=== PATIENT | female | born 1975 | race Caucasian/White ===

== ENCOUNTER 2018-01-03 10:33 | Outpatient (CLI) | payer OTHER ==
[2018-01-03 12:20] LABS: #Eosinphils 0.1 thou/uL (0.0-0.7); #Lymphocytes 1.2 thou/uL (1.20-3.40); #Monocytes 0.3 thou/uL (0.11-0.59); #Neutrophils 4.3 thou/uL (1.40-6.50); %Basophils 0.4 % (0.0-1.0); %Eosinophils 1.9 % (0.0-10.0); %Lymphocytes 19.7 % (21.0-51.0); %Monocytes 5.3 % (0.0-10.0); %Neutrophils 72.7 % (42.0-75.0); Hemoglobin 13.8 g/dL (12.0-16.0); Mean Corpuscular Hemoglobin 27.7 pg (27.0-31.0); Mean Corpuscular Volume 86.8 fL (78.0-98.0); Mean Platelet Volume 8.8 fL (7.4-10.4); Platelet Count 159 thou/uL (130-400); RBC Distribution Width 13.8 % (11.5-14.5); Red Blood Cell (RBC) Count 4.96 mill/uL (4.20-5.40); White Blood Cell (WBC) Count 5.8 thou/uL (4.8-10.8)
[2018-01-03 12:39] LABS: BHCG - Serum Negative (NEGATIVE); Pregs Control Background? CLEAR/WHITE (CLR/WHITE); Pregs Control Bar Appear? YES (CONTROL BAR)
--- NOTE | 2018-01-03 12:39 | RAD ---
PA AND LATERAL CHEST: History: Pre-operative evaluation. FINDINGS: The cardiomediastinum is normal. The lungs are well expanded and clear. The bony thorax is normal. IMPRESSION: Normal exam. POS: [facility]
== END 2018-01-03 10:34 | disposition home or self-care (01) ==
LOC: LABBT 10:33
PROVIDERS: ATTEND Orthopaedic Surgery
DX: Z01.818 Encounter for other preprocedural examination (principal); Z98.890 Other specified postprocedural states
CPT/HCPCS: 71046; 84703; 85025

== ENCOUNTER 2018-01-04 05:44 | Day surgery (SDC) | payer OTHER ==
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
[2018-01-03 11:11] VITALS: BMI 26.1
[2018-01-04] MEDS ORDERED: CEFAZOLIN 2 GM/50 ML BAG ONE (06:29)
[2018-01-04] MEDS ORDERED: Fentanyl 100 MCG/2 ML VIAL ONE ×2 (06:49→09:09)
[2018-01-04] MEDS ORDERED: Rocuronium Bromide 50 MG/5 ML VIAL ONE (06:49)
[2018-01-04] MEDS ORDERED: PROPOFOL 20 ML ONE (06:49)
[2018-01-04] MEDS ORDERED: Propofol 500 MG/50 ML VIAL ONE (07:03)
[2018-01-04] MEDS ORDERED: Ketamine 50 MG/ML VIAL ONE (07:26)
[2018-01-04] MEDS ORDERED: Bupivacaine HCl 0.5%/Epinephrine 1:200,000/PF 30 ml Vial ONE (07:52)
[2018-01-04] MEDS ORDERED: Promethazine HCl 25 MG/ML VIAL ONE (09:06)
[2018-01-04] MEDS ORDERED: Midazolam HCl 2 mg/2 ml Vial ONE (09:31)
[2018-01-04] MEDS ORDERED: HYDROcodone/Acetaminophen 5/325 mg Tablet ONE (10:16)
--- NOTE | 2018-01-04 10:57 | OP ---
DATE OF PROCEDURE: 01/04/2018 SURGEON: Lam Grigsby M.D. ANESTHESIA: General. PREOPERATIVE DIAGNOSIS: Painful retained deep implants, right elbow with recurrent skin breakdown. POSTOPERATIVE DIAGNOSIS: Painful retained deep implants, right elbow with recurrent skin breakdown. PROCEDURE: Removal of deep implants (plates and screws) right elbow. OPERATIVE FINDINGS: There was chronic inflammation about the plate and screws. There was 1 small op ening of skin breakdown over the olecranon which is pinhole in size. There was no gross pus. The ve ry most proximal screw going through the tip of the olecranon, the screw head was either broken or br kingsley off during the removal process and I elected to leave the remaining threads within the bone as th is did not appear to be causing any problems. One of the screw heads was stripped and then required removal with a needle nose pliers, but the remainder of the plate and screws were removed without too much difficulty. NARRATIVE REPORT: After satisfactory anesthesia was induced in the supine position, the patient was placed in lateral decubitus position, this position was held with the mcallister bag. The right arm was th en prepped and draped in routine sterile fashion. Right arm was elevated, exsanguinated with an Freda rch bandage, and tourniquet inflated to 250 mmHg. The arm was placed in the flexed position over a b olster. A portion of the previous incision was made over the olecranon and proximal ulna, carried ou t subcutaneous tissues. Bleeding points controlled with Bovie cautery. Full thickness skin flaps we re developed and plate subperiosteally dissected off the proximal ulna. The above findings were note d. The plate and screws were then removed without too much difficulty as noted above. The most prox imal screw threads were left in the bone as mentioned above. There was some hypertrophic bone about the screw holes which was removed with a rongeur and the screw holes were curetted with a small curet to remove any scar tissue to encourage revascularization and filling out of the screw holes. The wo und was then thoroughly irrigated and then infiltrated with 20 mL of 0.5% Marcaine with epinephrine. The subcutaneous tissues were loosely approximated with interrupted 2-0 Vicryl and the skin loosely approximated with interrupted 3-0 nylon. The small open area was left intact to serve as a source of drainage. A sterile bulky compressive dressing was applied and the tourniquet deflated after 40 min utes. The hand promptly pinked up. The patient was immobilized in a long arm plaster splint and sli ng. She was then awakened and taken to recovery room in stable condition. There were no apparent in traoperative complications. The estimated blood loss was negligible. The patient will be discharged home in satisfactory condition. She was instructed on ice, elevation, and given written cast care instructions. She was given a prescription for [place] 10 for pain, 60 ta blets and Keflex 500 mg t.i.d. for 10 days. She will be rechecked in my office in 12-14 days or soon er if there are any problems prior to that time.
== END 2018-01-04 11:00 | disposition home or self-care (01) ==
LOC: SDC 05:44
PROVIDERS: ATTEND Orthopaedic Surgery
PROC: 0RPL04Z Removal of Internal Fixation Device from Right Elbow Joint, Open Approach (ICD-10-PCS; principal; 2018-01-04)
DX: T84.84XA Pain due to internal orthopedic prosthetic devices, implants and grafts, initial encounter (principal); T84.89XA Other specified complication of internal orthopedic prosthetic devices, implants and grafts, initial encounter; M00.9 Pyogenic arthritis, unspecified; F32.9 Major depressive disorder, single episode, unspecified; F41.9 Anxiety disorder, unspecified; Z79.1 Long term (current) use of non-steroidal anti-inflammatories (NSAID); Z79.2 Long term (current) use of antibiotics; Z79.899 Other long term (current) drug therapy; Z86.14 Personal history of Methicillin resistant Staphylococcus aureus infection; Z88.0 Allergy status to penicillin; Z88.2 Allergy status to sulfonamides; Z88.5 Allergy status to narcotic agent; Z98.890 Other specified postprocedural states
CPT/HCPCS: 96374; 96375; J0670; J2001; J2250; J2550; J2704; J3010; J3370